=== PATIENT | female | born 1955 | race American Indian/Alaskan Native ===

== ENCOUNTER 2019-04-13 08:42 | Emergency (ER) | payer SELFPAY ==
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
[2019-04-13 17:12] VITALS: BP 132/84
== END 2019-04-13 10:50 | disposition home or self-care (01) ==
LOC: ED 08:42
DX: M54.2 Cervicalgia (principal); M54.5 Low back pain; Z98.890 Other specified postprocedural states; Z79.899 Other long term (current) drug therapy; V73.6XXA Passenger on bus injured in collision with car, pick-up truck or van in traffic accident, initial encounter; Y93.89 Activity, other specified; Y92.410 Unspecified street and highway as the place of occurrence of the external cause; Y99.8 Other external cause status
CPT/HCPCS: 72040; 72072; 72100